=== PATIENT | female | born 1990 | race Caucasian/White ===

== ENCOUNTER → 2020-07-04 17:36 | Outpatient (BNVA) | payer SELFPAY | PROVIDERS: Visit Provider Nurse Practitioner Family | DX: S99.912A Unspecified injury of left ankle, initial encounter (principal); X58.XXXA Exposure to other specified factors, initial encounter; M25.472 Effusion, left ankle; M79.89 Other specified soft tissue disorders | CPT/HCPCS: 73610 ==

== ENCOUNTER → 2020-09-12 07:58 | Outpatient (BNVA) | payer BC, MEDICAID, SELFPAY | PROVIDERS: Visit Provider Obstetrics & Gynecology | DX: O21.9 Vomiting of pregnancy, unspecified (principal) | CPT/HCPCS: 80307; 81000; 82950; 85025; 86592; 86762; 86803; 86850; 86900; 87086; 87340; 87806; 88175 ==

== ENCOUNTER → 2020-10-04 15:34 | Outpatient (BNVA) | payer BC, MEDICAID, SELFPAY | PROVIDERS: Visit Provider Nurse Practitioner Women's Health | DX: O21.9 Vomiting of pregnancy, unspecified (principal) | CPT/HCPCS: 81000 ==

== ENCOUNTER 2020-10-19 17:19 | Emergency (ER) | payer BC, MEDICAID, SELFPAY ==
[2020-10-19 17:43] VITALS: BP 165/92; PULSE 125; RESP 18; TEMP 37.4; O2SAT 98; BMI 43.6
[2020-10-19 18:06] LABS: Basophils % 0.1 %; Eosinophils % 0.1 %; Hematocrit 38.1 % (37.0-47.0); Hemoglobin 12.6 g/dL (11.5-15.3); Lymphocytes % 12.2 %; Mean Corpuscular HGB Conc 33.1 g/dL (30.0-36.0); Mean Corpuscular Hemoglobin 29.8 pg (28.0-34.0); Mean Corpuscular Volume 90.1 fL (81-99); Mean Platelet Volume 10.6 fL (7.4-10.4); Monocytes # 0.4 10^3/uL (0.2-0.9); Monocytes % 4.8 %; Neutrophils % 82.6 %; Nucleated Red Blood Cells % 0 %; Platelet Count 254 10^3/cmm (130-400); Red Blood Count 4.23 10^6/uL (4.1-5.3); Red Cell Distribution Width 12.7 % (12.1-15.1); White Blood Count 8.3 10^3/uL (4.0-10.0)
--- NOTE | 2020-10-19 18:07 | USR_ITS ---
PROCEDURE INFORMATION: Exam: US , Limited Exam date and time: 10/19/2020 6:07 PM Age: 29 years old Clinical indication: complicated by abdominal or pelvic pain; Lower; Second trimester; Gestational age or lmp: 18 w 6 day; ; Patient HX: Spotting; Additional info: Viable TECHNIQUE: Imaging protocol: Real-time ultrasound of the maternal uterus with image documentation. Exam focused on the clinical indication. COMPARISON: US OB <= 14 weeks fetus [facility] 09/06/2020 1:39 PM FINDINGS: Gestation: Single intrauterine . presentation: Breech presentation. heart rate: heart rate 157 bpm. BIOMETRY: Gestational age (AUA): Ultrasonographic age 18 weeks 6 days. MATERNAL: Cervix: Cervix closed and normal in length measuring 5 cm. US/US OB limited [id number] IMPRESSION: 1. Single intrauterine . 2. Ultrasonographic age 18 weeks 6 days. 3. heart rate 157 bpm. 4. Breech presentation. 5. Cervix closed and normal in length measuring 5 cm.
[2020-10-19 18:35] LABS: Alanine Aminotransferase 19 U/L (0-33); Albumin Level 3.8 g/dL (3.5-5.2); Alkaline Phosphatase 50 IU/L (35-105); Aspartate Amino Transferase 15 U/L (0-32); Blood Urea Nitrogen 4 mg/dL (6-20); Calcium 8.6 mg/dL (8.5-10.5); Carbon Dioxide 24 mmol/L (22-29); Chloride 99 mmol/L (98-107); Globulin 3.2 g/dL (1.3-4.6); Glomerular Filtration Rate 188.7 mL/min (90-130); Glucose 90 mg/dL (65-115); Osmolality Calculated 272 mOsm/kg (285-295); Sodium 133 mmol/L (136-145); Total Bilirubin 0.4 mg/dL (0.15-1.2)
[2020-10-19 18:42] LABS: Blood Urine Trace (Negative); Glucose Urine UA Norm (Normal); Ketones Urine 2+ (Negative); Nitrate Urine Negative (Negative); Protein Urine Neg (Negative); Urine Appearance Clear (CLEAR); Urine Color Yellow (Yellow); pH Urine 5 (5-7)
[2020-10-19 18:43] LABS: Add Urine Culture? No; Add Urine Microscopic? YES; Bacteria Urine 2+ /hpf; Bilirubin Urine 1+ (Negative); Leukocyte Esterase Urine Negative (Negative); RBC Urine 0-4 /hpf (0-2); Squamous Epithelial Cell Urine 15-25 /hpf (0-5); Urobilinogen Urine Norm (Negative)
[2020-10-19] MEDS: sodium chloride 0.9% 1,000 ML 999 ML IV (19:14)
[2020-10-19 19:17] VITALS: BP 119/81; PULSE 103; RESP 16; O2SAT 95
--- NOTE | 2020-10-19 20:21 | ED_ITS ---
HPI - General Adult General: Chief complaint: General Medical Stated complaint: 19 WEEKS , SPOTTING, FEVER Time Seen by Provider: 10/19/20 17:55 History of Present Illness: HPI narrative: 29-year-old female who is 19 weeks , presents with vomiting and diarrhea for the past couple of days. Today she began to have a fever, 100.9 at home, and started having some cramping in her pelvis with spotting blood. No passage of tissue or clots. No loss of vaginal fluid. Onset (ago): day(s) Location: pelvis Radiation: non-radiation Severity: moderate Quality: other (cramping) Relieving factors: none Associated symptoms: Reports decreased appetite, fevers/chills, headache(s), nausea and vomiting; Deny chest pain, cough, dyspnea, rash, short of breath or weakness Review of Systems Const: Denies: fever(s) or chills Eyes: Denies: change in vision ENMT: Denies: odynophagia, dental pain, change in hearing or sinus pain Card: Denies: chest pain Resp: Denies: dyspnea GI: Reports: nausea and vomiting : Denies: dysuria or hematuria Musc: Reports: back pain Skin/Breast: Denies: rash or erythema Neuro: Reports: headache(s) Psych: Denies: anxiety PFSH ED PFSH: Medical History (Updated 10/19/20 @ 20:20 by Jonathan Avila DO) History of seizure (~2009) 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 Family History Grandmother Breast cancer Maternal- late age onset Family/Other Ovarian cancer, Onset Age: 35 Maternal Aunt Other CAD (coronary artery disease) Psychiatric illness Denies family history of Colon cancer Diabetes Heart disease Hypercholesteremia Hypertension Uterine cancer Thyroid disease Stroke Physical Exam Const: GENERAL APPEARANCE: well developed ORIENTATION/CONSCIOUSNESS: Yes oriented to person, Yes oriented to place and Yes oriented to time HENMT: COMMON NORMALS: normocephalic and external ears normal HEAD & SCALP: normocephalic FACE & SINUS: normal facial exam EXTERNAL EAR: Yes external ears normal Eye: COMMON NORMALS: Equal, round and reactive pupils present, EOMs intact bilaterally and conjunctivae normal EYELID: eyelids normal CONJUNCTIVA: Yes conjunctivae normal PUPIL: Yes Equal, round and reactive pupils present Neck/C-Spine: GENERAL: No tracheal deviation Chest: COMMONS NORMALS: normal inspection of the chest CHEST: No tenderness Resp: COMMON NORMALS: clear to auscultation bilaterally EFFORT & INSPECTION: No tachypneic, No respiratory distress, No retractions, No uses accessory muscles and No tracheal deviation AUSCULTATION: clear to auscultation bilaterally, no rhonchi, no wheezes and lung sounds not diminished Cardio: COMMON NORMALS: regular rate and regular rhythm RATE: regular rate RHYTHM: regular rhythm HEART SOUNDS: no murmurs PERIPHERAL PULSES: radial pulses present GI: INSPECTION: No abdominal distension AUSCULTATION: No Hyperactive bowel sounds present and No Hypoactive bowel sounds present PALPATION: Yes Tenderness to palpation present (GI) (diffuse lower), No Guarding due to palpation present (GI) and No Rigid due to palpation PERCUSSION: no dullness to percussion and no tympanic to percussion : COMMON NORMALS: Yes no CVA tenderness BLADDER/KIDNEY EXAM: Yes no CVA tenderness Back/Pelvis: COMMON NORMALS: no CVA tenderness Neuro: SENSORIUM/ORIENTATION: Yes oriented to person, Yes oriented to place and Yes oriented to time Psych: COMMON NORMALS: mental status grossly normal Skin: COMMON NORMALS: no rashes or lesions noted GENERAL SKIN EXAM: no rashes or lesions noted Course Vital Signs: Vital signs: Vital Signs Temperature 99.4 F 10/19/20 17:43 Pulse Rate 116 H 10/19/20 20:56 Respiratory Rate 16 10/19/20 20:56 Blood Pressure 123/74 10/19/20 20:56 Pulse Oximetry 97 10/19/20 20:56 MDM - General Adult MDM Narrative: Medical decision making narrative: 29-year-old female at 19 weeks, cramping, spotting. She is got a temperature. White blood cell count is 8.3. Laboratory otherwise benign. She has 2+ ketones in her urine. She is received a fluid bolus here and is feeling better. No cramping here. No further bleeding. On ultrasound, she has an 18-week 6-day intrauterine with normal heart rate, normal-appearing cervix that is closed. No other vaginal discharge. She is complaining of a headache, for which she was given medication. She has no shortness of breath or cough. She will be allowed discharge for close outpatient follow-up. Lab Data: Labs: Lab Results 10/19/20 10/19/20 10/19/20 Range/Units 17:54 17:54 17:54 WBC 8.3 (4.0-10.0) 10^3/ uL RBC 4.23 (4.1-5.3) 10^6/u L Hgb 12.6 (11.5-15.3) g/dL Hct 38.1 (37.0-47.0) % MCV 90.1 (81-99) fL MCH 29.8 (28.0-34.0) pg MCHC 33.1 (30.0-36.0) g/dL RDW 12.7 (12.1-15.1) % Plt Count 254 (130-400) 10^3/c mm MPV 10.6 H (7.4-10.4) fL Neut % (Auto) 82.6 % Lymph % (Auto) 12.2 % Steele % (Auto) 4.8 % Eos % (Auto) 0.1 % Baso % (Auto) 0.1 % Neut # (Auto) 6.80 (1.8-7.7) 10^3/u L Lymph # (Auto) 1.0 (0.8-4.8) 10^3/u L Steele # (Auto) 0.4 (0.2-0.9) 10^3/u L Eos # (Auto) 0.0 (0.0-0.8) 10^3/u L Baso # (Auto) 0.0 (0.0-0.1) 10^3/u L Nucleated RBC % (a uto) 0 % Nucleated RBCs # 0.0 /100WBC Sodium 133 L (136-145) mmol/L Potassium 4.0 (3.5-5.1) mmol/L Chloride 99 (98-107) mmol/L Carbon Dioxide 24 (22-29) mmol/L Anion Gap 14.0 (5-19) BUN 4 L (6-20) mg/dL Creatinine 0.4 L (0.5-0.9) mg/dL GFR Calculation 188.7 H (90-130) mL/min Glucose 90 (65-115) mg/dL Calculated Osmolal ity 272 L (285-295) mOsm/k g Calcium 8.6 (8.5-10.5) mg/dL Total Bilirubin 0.4 (0.15-1.2) mg/dL AST 15 (0-32) U/L ALT 19 (0-33) U/L Alkaline Phosphata se 50 (35-105) IU/L Total Protein 7.0 (6.6-8.7) g/dL Albumin 3.8 (3.5-5.2) g/dL Globulin 3.2 (1.3-4.6) g/dL Ser , [place] 814[address].00 mIU/mL Urine Color (Yellow) Urine Appearance (CLEAR) Urine pH (5-7) Ur Specific Gravit y (1.005-1.030) Urine Protein (Negative) Urine Glucose (UA) (Normal) Urine Ketones (Negative) Urine Blood (Negative) Urine Nitrate (Negative) Urine Bilirubin (Negative) Urine Urobilinogen (Negative) mg/dL Ur Leukocyte Rachel ase (Negative) Urine RBC (0-2) /hpf Urine WBC (0-5) /hpf Ur Squamous Epith Cells (0-5) /hpf Amorphous Sediment Urine Bacteria (NONE) /hpf Blood Type O Positive Rho(D) Type Positive / 4+ / Range/Units 18:21 WBC (4.0-10.0) 10^3/ uL RBC (4.1-5.3) 10^6/u L Hgb (11.5-15.3) g/dL Hct (37.0-47.0) % MCV (81-99) fL MCH (28.0-34.0) pg MCHC (30.0-36.0) g/dL RDW (12.1-15.1) % Plt Count (130-400) 10^3/c mm MPV (7.4-10.4) fL Neut % (Auto) % Lymph % (Auto) % Steele % (Auto) % Eos % (Auto) % Baso % (Auto) % Neut # (Auto) (1.8-7.7) 10^3/u L Lymph # (Auto) (0.8-4.8) 10^3/u L Steele # (Auto) (0.2-0.9) 10^3/u L Eos # (Auto) (0.0-0.8) 10^3/u L Baso # (Auto) (0.0-0.1) 10^3/u L Nucleated RBC % (a uto) % Nucleated RBCs # /100WBC Sodium (136-145) mmol/L Potassium (3.5-5.1) mmol/L Chloride (98-107) mmol/L Carbon Dioxide (22-29) mmol/L Anion Gap (5-19) BUN (6-20) mg/dL Creatinine (0.5-0.9) mg/dL GFR Calculation (90-130) mL/min Glucose (65-115) mg/dL Calculated Osmolal ity (285-295) mOsm/k g Calcium (8.5-10.5) mg/dL Total Bilirubin (0.15-1.2) mg/dL AST (0-32) U/L ALT (0-33) U/L Alkaline Phosphata se (35-105) IU/L Total Protein (6.6-8.7) g/dL Albumin (3.5-5.2) g/dL Globulin (1.3-4.6) g/dL Ser , Won i-Qnt mIU/mL Urine Color Yellow (Yellow) Urine Appearance Clear (CLEAR) Urine pH 5 (5-7) Ur Specific Gravit y 1.020 (1.005-1.030) Urine Protein Neg (Negative) Urine Glucose (UA) Norm (Normal) Urine Ketones 2+ H (Negative) Urine Blood Trace H (Negative) Urine Nitrate Negative (Negative) Urine Bilirubin 1+ H (Negative) Urine Urobilinogen Norm (Negative) mg/dL Ur Leukocyte Rachel ase Negative (Negative) Urine RBC 0-4 H (0-2) /hpf Urine WBC None (0-5) /hpf Ur Squamous Epith Cells 15-25 H (0-5) /hpf Amorphous Sediment Not Reportable Urine Bacteria 2+ H (NONE) /hpf Blood Type Rho(D) Type Discharge Plan Discharge Patient Disposition: Home Clinical Impression: Gastroenteritis Condition: Stable Prescriptions: No Action prenat.vits,dae,yfd-xfxn-rqqnr Tablet 1 tab PO DAILY RF: 0 levocetirizine [Xyzal] 5 mg tablet 5 mg PO DAILY RF: 0 pyridoxine (vitamin B6) 25 mg tablet 25 mg PO DAILY RF: 0 famotidine [Pepcid AC] 10 mg tablet 10 mg PO DAILY RF: 0 amoxicillin PO TID RF: 0 metoclopramide HCl [Reglan] 10 mg tablet 10 mg PO Q6H PRN (Reason: nausea and vomiting) Qty: 90 RF: 1 Unisom (doxylamine) 25 mg tablet 25 mg PO .hs PRNRF: 0 Discharge Orders: Discharge ED (Routine); Ordered 10/19/20 Ordered By: Jonathan Avila Referrals: Alicia Clements MD [Primary Care Provider] - 4-7 days Discharge Diet: Clear Liquid Discharge Activity: Limit activity as instructed Patient Instructions: Gastroenteritis (ED) Activity Restrictions/Additional Instructions: Use your nausea medication as needed. Return for ability to control fever, vomiting liquids or medications, continued diarrhea with signs of dehydration, or vaginal bleeding. Coding Level of Care Code ED Workers Compensation Claims Analyst for [employer] Fwd Exam Comprehensive
[2020-10-19] MEDS: acetaminophen 500 mg Tablet 1000 MG PO (20:45)
[2020-10-19] MEDS: ondansetron 2 mg/ML SDV 2 mL 4 MG IVP (20:47)
[2020-10-19 20:51] VITALS: RESP 16; O2SAT 97
[2020-10-19] MEDS: morphine 4 mg/mL SDV 1 mL IVP (20:51)
[2020-10-19 20:56] VITALS: BP 123/74; PULSE 116; RESP 16; O2SAT 97
[2020-10-19 21:20] VITALS: BP 117/80; PULSE 111; RESP 18; O2SAT 98
== END 2020-10-19 21:22 | disposition home or self-care (01) ==
PROVIDERS: Physician Assistant; Emergency Provider Emergency Medicine; PCP Obstetrics & Gynecology
DX: O99.612 Diseases of the digestive system complicating pregnancy, second trimester (principal); K52.9 Noninfective gastroenteritis and colitis, unspecified; Z3A.19 19 weeks gestation of pregnancy
CPT/HCPCS: 76815; 80053; 81001; 84702; 85025; 86900; 96361; 96374; 96375; 99284; J2270; J2405; J7030

== ENCOUNTER → 2020-11-01 09:29 | Outpatient (BNVA) | payer BC, MEDICAID, SELFPAY | PROVIDERS: PCP Obstetrics & Gynecology; Visit Provider Obstetrics & Gynecology | DX: O21.9 Vomiting of pregnancy, unspecified (principal); Z3A.00 Weeks of gestation of pregnancy not specified | CPT/HCPCS: 81000; 87491; 87591; 87661 ==

== ENCOUNTER → 2020-11-28 11:06 | Outpatient (BNVA) | payer BC, MEDICAID, SELFPAY | PROVIDERS: PCP Obstetrics & Gynecology; Visit Provider Obstetrics & Gynecology | DX: Z34.80 Encounter for supervision of other normal pregnancy, unspecified trimester (principal) | CPT/HCPCS: 81000 ==

== ENCOUNTER → 2020-12-12 14:02 | Outpatient (BNVA) | payer BC, MEDICAID, SELFPAY | PROVIDERS: PCP Obstetrics & Gynecology; Visit Provider Obstetrics & Gynecology | DX: O26.859 Spotting complicating pregnancy, unspecified trimester (principal); Z3A.00 Weeks of gestation of pregnancy not specified | CPT/HCPCS: 81000 ==

== ENCOUNTER 2020-12-13 19:59 | Outpatient (CLI) | payer BC, MEDICAID, SELFPAY ==
[2020-12-13 20:14] VITALS: TEMP 36.6
[2020-12-13 20:15] VITALS: BP 119/66; PULSE 106
[2020-12-13 20:28] VITALS: RESP 17
[2020-12-13 20:31] VITALS: BP 122/69; PULSE 103
[2020-12-13 20:42] VITALS: BMI 45.4
[2020-12-13 22:08] LABS: Add Urine Microscopic? NO; Charge for UA Resulting for Rev
[2020-12-13 22:47] LABS: Bilirubin Urine Neg (Negative); Blood Urine Neg (Negative); Glucose Urine UA Norm (Normal); Ketones Urine 2+ (Negative); Leukocyte Esterase Urine Negative (Negative); Nitrate Urine Negative (Negative); Protein Urine Neg (Negative); Specific Gravity, Urine 1.015 (1.005-1.030); Urine Appearance Clear (CLEAR); Urine Color Yellow (Yellow); Urobilinogen Urine Norm (Negative); pH Urine 5 (5-7)
--- NOTE | 2020-12-14 10:03 | PC.NURSE ---
SCRIPT FOR KEFLEX 500MG BID X7 DAYS WAS CALLED TO JANA AT [facility] AT 0932.
== END 2020-12-13 20:42 | disposition home or self-care (01) ==
LOC: OPOB 20:08 → OBGYN 20:09
PROVIDERS: PCP Obstetrics & Gynecology; Visit Provider Obstetrics & Gynecology
DX: O26.899 Other specified pregnancy related conditions, unspecified trimester (principal); Z3A.00 Weeks of gestation of pregnancy not specified; R10.9 Unspecified abdominal pain
CPT/HCPCS: 81003; 87086; 99211

== ENCOUNTER → 2020-12-24 00:01 | Outpatient (BNVA) | payer BC, MEDICAID, SELFPAY | PROVIDERS: PCP Obstetrics & Gynecology; Visit Provider Nurse Practitioner Women's Health | DX: O21.9 Vomiting of pregnancy, unspecified (principal); Z3A.00 Weeks of gestation of pregnancy not specified | CPT/HCPCS: 81000; 82950; 85025; 87070; 87205; 87491; 87591; 87661 ==

== ENCOUNTER → 2021-01-09 08:57 | Outpatient (BNVA) | payer BC, MEDICAID, SELFPAY | PROVIDERS: PCP Obstetrics & Gynecology; Visit Provider Obstetrics & Gynecology | DX: Z34.80 Encounter for supervision of other normal pregnancy, unspecified trimester (principal) | CPT/HCPCS: 81000 ==

== ENCOUNTER → 2021-01-23 08:46 | Outpatient (BNVA) | payer BC, MEDICAID, SELFPAY | PROVIDERS: PCP Obstetrics & Gynecology; Visit Provider Obstetrics & Gynecology | DX: Z34.80 Encounter for supervision of other normal pregnancy, unspecified trimester (principal) | CPT/HCPCS: 81000; 85025 ==

== ENCOUNTER 2021-02-06 16:39 | Outpatient (CLI) | payer BC, MEDICAID, SELFPAY ==
[2021-02-06] VITALS (14 sets, daily range): BP systolic 108–142; BP diastolic 63–79; PULSE 91–104; RESP 18; TEMP 36.6; BMI 45.4
[2021-02-06] MEDS: acetaminophen 500 mg Tablet 1000 MG PO (17:59)
== END 2021-02-06 20:19 | disposition home or self-care (01) ==
LOC: OPOB 16:49 → OBGYN 16:58
PROVIDERS: PCP Obstetrics & Gynecology; Visit Provider Obstetrics & Gynecology
DX: O26.899 Other specified pregnancy related conditions, unspecified trimester (principal); Z3A.00 Weeks of gestation of pregnancy not specified; R10.9 Unspecified abdominal pain
CPT/HCPCS: 59025; 81000; 99211

== ENCOUNTER → 2021-02-20 09:16 | Outpatient (BNVA) | payer BC, MEDICAID, SELFPAY | PROVIDERS: PCP Obstetrics & Gynecology; Visit Provider Obstetrics & Gynecology | DX: Z34.80 Encounter for supervision of other normal pregnancy, unspecified trimester (principal) | CPT/HCPCS: 81000; 87081 ==

== ENCOUNTER 2021-02-27 09:35 | Outpatient (CLI) | payer BC, MEDICAID, SELFPAY ==
[2021-02-27 09:35] VITALS: BMI 46.7
[2021-02-27 09:51] VITALS: BP 123/81; PULSE 111
--- NOTE | 2021-02-27 10:00 | US_ITS ---
WS: [id number] ULTRASOUND OB LIMITED TECHNIQUE: Limited ultrasound examination of the fetus. CLINICAL INFORMATION: decreased movement COMPARISON: December 24, 2020 FINDINGS: Cervix is not well visualized. Single interuterine gestation. presentation is vertex Placental location is posterior fundal. heart rate 150 BPM. KASEY 15.3 cm greater than the median and less than 95th percentile. Biophysical profile 8 out of 8. breathin movement: 2 tone: 2 Amniotic fluid: 2 US/US OB BPP wo NST [id number] IMPRESSION: 1. Normal biophysical profile 8 out of 8 2. Cervix not well visualized. 3. KASEY 15.3 cm greater than the median and less than 95th percentile.
[2021-02-27 10:06] VITALS: BP 124/76; PULSE 100
[2021-02-27 10:21] VITALS: BP 118/72; PULSE 94
== END 2021-02-27 11:00 | disposition home or self-care (01) ==
LOC: OPOB 09:41 → OBGYN 09:45
PROVIDERS: PCP Obstetrics & Gynecology; Visit Provider Obstetrics & Gynecology
DX: O36.8190 Decreased fetal movements, unspecified trimester, not applicable or unspecified (principal)
CPT/HCPCS: 59025; 76819; 81000; 99211

== ENCOUNTER → 2021-03-06 15:53 | Outpatient (BNVA) | payer BC, MEDICAID, SELFPAY | PROVIDERS: PCP Obstetrics & Gynecology; Visit Provider Obstetrics & Gynecology | DX: Z34.80 Encounter for supervision of other normal pregnancy, unspecified trimester (principal) | CPT/HCPCS: 81000 ==

== ENCOUNTER 2021-03-11 14:51 | Inpatient (IN) | payer BC, MEDICAID, SELFPAY ==
[2021-03-11] VITALS (21 sets, daily range): BP systolic 105–144; BP diastolic 60–91; PULSE 88–110; RESP 16–18; TEMP 36.2–36.5; BMI 48.2
[2021-03-11] MEDS: dextrose 5%-lactated ringers 1,000 ML 125 ML IV (15:55)
[2021-03-11] MEDS: oxytocin 30 UNIT/500 ML BAG IV (16:00)
[2021-03-11 16:23] LABS: Basophils % 0.1 %; Eosinophils % 0.4 %; Hematocrit 31.8 % (37.0-47.0); Hemoglobin 10.3 g/dL (11.5-15.3); Lymphocytes # 2.3 10^3/uL (0.8-4.8); Lymphocytes % 30.6 %; Mean Corpuscular HGB Conc 32.4 g/dL (30.0-36.0); Mean Corpuscular Hemoglobin 28.5 pg (28.0-34.0); Mean Corpuscular Volume 87.8 fl (81-99); Mean Platelet Volume 11.6 fL (7.4-10.4); Monocytes # 0.7 10^3/uL (0.2-0.9); Neutrophils # 4.32 10^3/uL (1.8-7.7); Neutrophils % 58.5 %; Nucleated Red Blood Cells % 0 %; Platelet Count 276 10^3/cmm (130-400); Red Blood Count 3.62 10^6/uL (4.1-5.3); Red Cell Distribution Width 13.2 % (12.1-15.1); White Blood Count 7.4 10^3/uL (4.0-10.0)
[2021-03-11] MEDS: acetaminophen 325 mg Tablet 650 MG PO (19:15)
[2021-03-11] MEDS: lactated ringers 1,000 ML 999 ML IV (21:36)
[2021-03-11] MEDS: fentaNYL 50 mcg/mL INJ 2mL IVP (21:37)
--- NOTE | 2021-03-11 22:33 | PM.OPHPUD ---
Labor & Delivery H&P Update Date of Procedure: March 11, 2021 Date H&P Performed: 03/06/21 H&P update information: I have reviewed H&P completed within last 30 days, I have examined patient prior to procedure and Changes to prior documentation as noted here Changes to previous documentation: The patient is here for elective induction of labor. Cervix 60/-3 Admission Diagnosis: iup@39w2d Related Problem List Diagnoses (1) Supervision of other normal : (2) Somatic dysfunction of pubic region:
--- NOTE | 2021-03-11 22:38 | P.PCNOB_ITS ---
Delivery Note: Date of delivery: March 11, 2021 Pre-delivery diagnoses: iup@ 39 06/02 Post-delivery diagnoses: same Procedure: Op report anesthesia: None Delivering Physician: grabiel Estimated blood loss (mL): 10 Pre-Delivery Course: The patient was admitted for induction at term. Pitocin was started. She was 5 cm dilated and had SROM. Her contractions became stronger and the pitocin was started. She wanted an epidural, but had complete cervical dilation, shortly after SROM. Delivery: The patient had complete cervical dilation and began to push. The head delivered in the JEANA position over an intact perineum under no anesthesia. The nose and mouth were bulb suctioned. The shoulders and body delivered atraumatically. The baby was placed onto the mother's abdomen. The cord was clamped and cut. Cord blood was obtained. The placenta delivered spontaneously. It was inspected and found to be intact. Inspection of the perineum revealed no lacerations. Estimated blood loss 10 mL. Apgars on baby were 8 at 1 minute and 9 at 5 minutes. Weight of baby is 9 pounds 2 ounces. Mother and baby were stable post delivery. History History History 2 Term 1 Miscarriages/Ectopic 0 0 Living Children 1 A&P Assessment and plan (1) Supervision of other normal : Status: Acute (2) Somatic dysfunction of pubic region: Status: Acute Coding Level of Care Code Acute Nanotechnology Engineering Technician for Chg Fwd Diagnoses Supervision of other normal Z34.80 Somatic dysfunction of pubic region M99.05
[2021-03-12] VITALS (15 sets, daily range): BP systolic 112–134; BP diastolic 6–88; PULSE 88–122; TEMP 36.1–37.3; O2SAT 98
--- NOTE | 2021-03-12 08:37 | PM.PN ---
Vitals/I&O/Wt Last Vital Signs Temp 99.1 F 03/12/21 06:11 Pulse 93 03/12/21 07:58 Resp 18 03/11/21 22:52 BP 134/74 03/12/21 07:58 03/11/21 03/12/21 03/12/21 22:59 06:59 14:59 Intake Total 1593.117 / 0347.983 1724.3 / 2710.417 Output Total 350 / 350 Balance 1593.117 / 1593.117 767.3 / 2360.417 Weight last 48 hrs Weight 290 lb Physical Exam Narrative: EXAM NARRATIVE: The patient is doing well this am. The baby is in the nursery for O2 issues. Const: COMMON NORMALS: no acute distress, patient oriented x3, no limitations, healthy appearing, alert and well nourished GENERAL APPEARANCE: cooperative, comfortable, well kempt and well developed ORIENTATION/CONSCIOUSNESS: Yes awake, Yes oriented to person, Yes oriented to place and Yes oriented to time Resp: COMMON NORMALS: normal respiratory effort EFFORT & INSPECTION: Yes able to speak in complete sentences GI: COMMON NORMALS: Soft to palpation and non-tender PALPATION: Yes Soft to palpation Extremity: COMMON NORMALS: no calf tenderness Neuro: COMMON NORMALS: patient oriented x3 SENSORIUM/ORIENTATION: Yes alert, Yes oriented to person, Yes oriented to place and Yes oriented to time Psych: COMMON NORMALS: mental status grossly normal, Normal thought process present, cooperative, normal affect and speech normal APPEARANCE: Yes grossly normal and Yes well kempt ATTITUDE: Yes calm and Yes engaged ACTIVITY/MOTOR BEHAVIOR: Yes appropriate eye contact SPEECH: Yes normal speech THOUGHT PROCESS: Normal thought process present Data : 03/11/21 15:45 Attestations Medical Necessity Statement*: The patient had a vaginal delivery and is staying 2 nights Coding Level of Care Code Acute Edge Polisher for Tiffanie Kirkland
[2021-03-12] MEDS: ibuprofen 800 mg tablet PO ×3 (09:51→20:49)
[2021-03-12] MEDS: prenatal vitamin Capsule 1 CAP PO (09:51)
[2021-03-12] MEDS: docusate sodium 100 mg Capsule PO ×2 (09:51→18:27)
[2021-03-12 10:48] LABS: Hematocrit 30.2 % (37.0-47.0); Hemoglobin 9.7 g/dL (11.5-15.3); Mean Corpuscular HGB Conc 32.1 g/dL (30.0-36.0); Mean Corpuscular Hemoglobin 27.6 pg (28.0-34.0); Mean Platelet Volume 12.2 fL (7.4-10.4); Platelet Count 210 10^3/cmm (130-400); Red Blood Count 3.51 10^6/uL (4.1-5.3); Red Cell Distribution Width 13.3 % (12.1-15.1); White Blood Count 9.4 10^3/uL (4.0-10.0)
[2021-03-12 16:58] LABS: Coronavirus Test Green County Not Detected
[2021-03-13 04:00] VITALS: BP 130/77; PULSE 85
--- NOTE | 2021-03-13 08:44 | PC.NURSE ---
0715 note This baby has been nursing well. Mom using a nipple shield but has doubts about baby getting enough. She has used formula through the night. She said after about 10 to 15 min of nursing baby was still acting hungry so she gave formula. Also baby has IV in her left arm, making positioning difficult for mom. The IV is going to be discontinued and that will help mom. Encouraged her to offer both breasts and to give both breasts more than once. She has colostrum and knows how to express as well.
[2021-03-13] MEDS: docusate sodium 100 mg Capsule PO (09:44)
[2021-03-13] MEDS: ibuprofen 800 mg tablet PO ×2 (09:44→16:13)
[2021-03-13] MEDS: prenatal vitamin Capsule 1 CAP PO (09:44)
[2021-03-13 10:39] VITALS: BP 125/77; PULSE 82
--- NOTE | 2021-03-13 14:14 | PM.DCS ---
Discharge Providers Date of Admission: 03/11/21 14:51 Date of Discharge: March 13, 2021 Attending Provider at Admission: Alicia Clements MD Attending Provider at Discharge: Alicia Clements MD Primary Care Provider: Alicia Clements MD Diagnoses at Discharge Discharge Diagnosis (1) Supervision of other normal : Status: Acute (2) Somatic dysfunction of pubic region: Status: Acute Permanent problem details: present during her last Reason for Visit Reason for Visit: Induction of labor Hospital Course Hospital Course The patient was admitted for induction at term. She had spontaneous delivery of a term female . She did well and was ready for discharge on day #2 Physical Exam Const: COMMON NORMALS: no acute distress, patient oriented x3, no limitations, healthy appearing and alert GENERAL APPEARANCE: cooperative, comfortable, well kempt and well developed ORIENTATION/CONSCIOUSNESS: Yes awake, Yes oriented to person, Yes oriented to place and Yes oriented to time Resp: COMMON NORMALS: normal respiratory effort EFFORT & INSPECTION: Yes able to speak in complete sentences GI: COMMON NORMALS: Soft to palpation and non-tender PALPATION: Yes Soft to palpation Extremity: COMMON NORMALS: no calf tenderness Neuro: COMMON NORMALS: patient oriented x3 SENSORIUM/ORIENTATION: Yes alert, Yes oriented to person, Yes oriented to place and Yes oriented to time Psych: APPEARANCE: Yes well kempt Discharge Data Data Completed and Pending: Labs from last 24 hours 03/11/21 15:25 Nasal/Oral COVID-1 9 PCR Not detected Vitals: Last Vital Signs Temp 97.0 F L 03/12/21 15:25 Pulse 82 03/13/21 10:39 Resp 18 03/11/21 22:52 BP 125/77 03/13/21 10:39 Pulse Ox 98 03/12/21 12:37 Discharge Plan Discharge Patient Disposition: Home Condition: Stable Prescriptions: Continued prenat.vits,dae,sdv-[id number] Tablet 1 tab PO DAILY RF: 0 ferrous sulfate [FeroSul] 325 mg (65 mg iron) tablet 325 mg PO DAILY RF: 0 metoclopramide HCl [Reglan] 10 mg tablet 10 mg PO Q6H PRN (Reason: nausea and vomiting) Qty: 30 RF: 0 Discharge Orders: Discharge Order (Routine); Ordered 03/13/21 Ordered By: Alicia Clements Patient Instructions: Depression (DC), Expression, Collection and Storage of Breast Milk (DC), Bleeding (DC), Preeclampsia and Eclampsia After Delivery (GEN), OB Discharge Report, OB Food/Drug Interaction Guide, Opioid Safety, OB Home Care, OB Vaginal Deliveries - [facility] Discharge Attestations Time Spent in Discharge Care*: less than 30 min Quality Metrics Clinical Quality Measures During this hospital stay, did patient experience: None Coding Level of Care Code Acute Chg FW DC note Diagnoses Supervision of other normal Z34.80 Somatic dysfunction of pubic region M99.05
[2021-03-13 19:24] VITALS: BP 128/67; PULSE 83; TEMP 36.2
[2021-03-13 19:44] VITALS: BP 128/67; PULSE 83; RESP 18; TEMP 36.2
== END 2021-03-13 19:44 | disposition home or self-care (01) | DRG 807 ==
LOC: OPOB 14:56 → OBGYN 14:57 → OPOB 15:00 → OBGYN 15:20
PROVIDERS: Admitting Provider Obstetrics & Gynecology; PCP Obstetrics & Gynecology; Visit Provider Obstetrics & Gynecology
DX: O75.89 Other specified complications of labor and delivery (principal); Z37.0 Single live birth; M99.05 Segmental and somatic dysfunction of pelvic region; Z3A.39 39 weeks gestation of pregnancy
CPT/HCPCS: 36415; 59025; 59409; 85025; 85027; 87635; 98960; J3010

== ENCOUNTER → 2021-08-21 14:27 | Outpatient (BNVA) | payer BC, MEDICAID, SELFPAY | PROVIDERS: PCP Obstetrics & Gynecology; Visit Provider Obstetrics & Gynecology | DX: N93.9 Abnormal uterine and vaginal bleeding, unspecified (principal) | CPT/HCPCS: 83525; 84443 ==

== ENCOUNTER → 2022-08-27 15:00 | Outpatient (BNVA) | payer BC, MEDICAID, SELFPAY | PROVIDERS: PCP Obstetrics & Gynecology; Visit Provider Obstetrics & Gynecology | DX: Z01.419 Encounter for gynecological examination (general) (routine) without abnormal findings (principal); N93.9 Abnormal uterine and vaginal bleeding, unspecified | CPT/HCPCS: 87624 ==

== ENCOUNTER → 2022-09-23 12:18 | Outpatient (BNVA) | payer OTHER, BC, MEDICAID, SELFPAY | PROVIDERS: PCP Obstetrics & Gynecology; Visit Provider Obstetrics & Gynecology | DX: N92.6 Irregular menstruation, unspecified (principal) | CPT/HCPCS: 76830 ==

== ENCOUNTER 2023-05-26 17:44 | Emergency (ER) | payer OTHER, BC, MEDICAID, SELFPAY ==
[2023-05-26 17:50] VITALS: BP 132/83; PULSE 91; RESP 16; TEMP 36.4; O2SAT 99
--- NOTE | 2023-05-26 18:19 | USR_ITS ---
PROCEDURE INFORMATION: Exam: US , Limited Exam date and time: 05/26/2023 7:38 PM Age: 32 years old Clinical indication: Lmp or gestational age (in weeks): Spotting x 4-5 days; Antepartum complications; Bleeding; ; Additional info: Abdnormal bleeding, 17 weeks TECHNIQUE: Imaging protocol: Real-time ultrasound of the maternal uterus with image documentation. Exam focused on the clinical indication. COMPARISON: US OB BPP wo NST [id number] 02/27/2021 10:38 AM FINDINGS: Gestation: There is an intrauterine in transverse presentation with heart rate measures 138 bpm. Amniotic fluid index measures 19.1 cm. Posterior grade 0 placenta. There is a 3.4 x 1 cm hypoechoic focus concerning for retroplacental hemorrhage. Cervix measures 7.3 cm and is closed. Measurements (cm) BPD: 4.1 cm HC: 15.6 cm AC: 12.9 cm FL: 2.8 cm EFW: 244 g CI: 86.8 FL/AC: 21.7 FL/HC: 17.9 HC/AC: 1.2 anatomy: Cerebellum: Not well visualized Choroid plexus: Unremarkable Cisterna magna: Not well visualized Falx: Not well visualized Cavum septum pellucidum: Unremarkable Upper lip: Not well visualized Facial profile: Not well visualized Stomach: Unremarkable Kidneys: Unremarkable Bladder: Unremarkable Umbilical cord insertion: Unremarkable Three-vessel cord: Visualized US/US OB >= 14 weeks fetus [id number] IMPRESSION: 1. Intrauterine with estimated gestational age of 18 weeks 4 days. There is a focal hypoechoic region measuring approximately 3 cm subjacent to the placenta concerning for retroplacental hemorrhage. OB evaluation is recommended. The findings were verbally communicated by telephone with GASTON ANDERSON at 8:40 PM INCOME TAX MANAGER on 05/26/2023. The findings were acknowledged and understood.
--- NOTE | 2023-05-26 18:20 | XRR_ITS ---
PROCEDURE INFORMATION: Exam: XR Chest Exam date and time: 05/26/2023 6:54 PM Age: 32 years old Clinical indication: Cough and dyspnea; Additional info: Cough, dyspnea TECHNIQUE: Imaging protocol: Radiologic exam of the chest. Views: 1 view. COMPARISON: No relevant prior studies available. FINDINGS: Lungs: No focal consolidation. Pleural spaces: No evidence of pneumothorax. No evidence of pleural effusion. Heart/Mediastinum: Cardiomediastinal silhouette is within normal limits. Bones/joints: No evidence of acute osseous abnormality. XR/XR chest 1V portable [id number] IMPRESSION: 1. No acute cardiopulmonary abnormality.
--- NOTE | 2023-05-26 18:23 | ED_ITS ---
HPI - Abdominal Pain 2 General: Chief Complaint: Abdominal Pain Stated Complaint: sob, abd pain Time Seen by Provider: 05/26/23 18:18 History of Present Illness: 32-year-old female comes in today for co ncerns of lower abdominal discomfort and spotting mainly when she wipes after urinating. Patient appears nontoxic. Patient has 1 other baby at home was 2 years old. 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 Patient appears nontoxic. Patient is alert and oriented. Review of Systems 2 General: Reports: 10 or more systems reviewed and unremarkable except in HPI and below GI: Reports: abdominal pain PFSH ED 2 PFSH: Medical History History of seizure (~2009) 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 Family History Grandmother Breast cancer Maternal- late age onset Family/Other Ovarian cancer, Onset Age: 35 Maternal Aunt Other CAD (coronary artery disease) Psychiatric illness Denies family history of Colon cancer Diabetes Heart disease Hypercholesteremia Hypertension Uterine cancer Thyroid disease Stroke Physical Exam 2 Const: COMMON NORMALS: alert Neck/C-Spine: COMMON NORMALS: full ROM Resp: COMMON NORMALS: normal respiratory effort Cardio: COMMON NORMALS: regular rate and regular rhythm RATE: regular rate RHYTHM: regular rhythm GI: COMMON NORMALS: non-tender : COMMON NORMALS: Yes no CVA tenderness BLADDER/KIDNEY EXAM: Yes no CVA tenderness Back/Pelvis: COMMON NORMALS: no CVA tenderness Extremity: COMMON NORMALS: no pedal edema Neuro: SENSORIUM/ORIENTATION: Yes alert Course 2 Vital Signs: Vital signs: Vital Signs Temperature 97.5 F L 05/26/23 17:50 Pulse Rate 95 05/26/23 20:24 Respiratory Rate 16 05/26/23 17:50 Blood Pressure 132/83 05/26/23 17:50 Pulse Oximetry 98 05/26/23 20:24 Oxygen Delivery Me thod Room Air 05/26/23 17:50 MDM - Abdominal Pain Medical Decision Making 32-year-old female comes in today for complaints of lower abdominal pain and spotting especially when she wipes after urinating. On exam respirations are even lungs are clear to auscultation. Abdomen soft nontender. Skin is warm and dry. Differential diagnosis includes but not limited to abruptio placentae, placenta previa, urinary tract infection, threatened . CBC, CMP, urinalysis were all unremarkable. Patient's beta hCG was 42,000. Influenza and COVID test were negative. Ultrasound of the fetus noted a 3 cm subplacental hemorrhage. Reviewed this with Dr. Waller who is on-call for Dr. Quintanilla who recommended pelvic rest and no lifting and follow-up with Dr. Quinatnilla tomorrow. Monitor for worsening bleeding and return to ER as needed. Reviewed this with patient who reported understanding agreed to plan. Lab Data 05/26/23 18:29 05/26/23 18:29 Labs/Radiology: Radiology Impressions Ultrasound 05/26/23 18:19 IMPRESSION: 1. Intrauterine with estimated gestational age of 18 weeks 4 days. There is a focal hypoechoic region measuring approximately 3 cm subjacent to the placenta concerning for retroplacental hemorrhage. OB evaluation is recommended. The findings were verbally communicated by telephone with ANDREA ANDERSON at 8:40 PM HANDS AND DIAL INSPECTOR on 05/26/2023. The findings were acknowledged and understood. Chest X-Ray 05/26/23 18:20 IMPRESSION: 1. No acute cardiopulmonary abnormality. Laboratory Results WBC 11.03 10^3/uL (3.29-11.43) 05/26/23 18: RBC 3.96 10^6/uL (3.85-5.65) 05/26/23 18: Hgb 11.90 g/dL (11.27-16.99) 05/26/23 18: Hct 35.9 % (36-47) L 05/26/23 18: MCV 90.7 fl (85-98) 05/26/23 18: MCH 30.1 pg (27-33) 05/26/23 18: MCHC 33.1 g/dL (30-55) 05/26/23 18: RDW 12.4 % (12.1-15.1) 05/26/23 18: Plt Count 258 10^3/cmm (157-399) 05/26/23 18: MPV 10.7 fL (7.4-10.4) H 05/26/23 18: Neut % (Auto) 64.3 % 05/26/23 18: Lymph % (Auto) 28.3 % 05/26/23 18: [place] % (Auto) 6.2 % 05/26/23 18: Eos % (Auto) 0.5 % 05/26/23 18: Baso % (Auto) 0.2 % 05/26/23 18: Neut # (Auto) 7.10 10^3/uL (1.8-7.7) 05/26/23 18: Lymph # (Auto) 3.1 10^3/uL (0.8-4.8) 05/26/23 18: [place] # (Auto) 0.7 10^3/uL (0.2-0.9) 05/26/23 18: Eos # (Auto) 0.1 10^3/uL (0.0-0.8) 05/26/23 18: Baso # (Auto) 0.0 10^3/uL (0.0-0.1) 05/26/23 18: Nucleated RBC % (auto) 0 % 05/26/23 18: Nucleated RBCs # 0.0 /100WBC 05/26/23 18: Sodium 135 mmol/L (136-145) L 05/26/23 18: Potassium 4.2 mmol/L (3.5-5.1) 05/26/23 18: Chloride 102 mmol/L (98-107) 05/26/23 18: Carbon Dioxide 23 mmol/L (22-29) 05/26/23 18: Anion Gap 14.2 (5-19) 05/26/23 18:29 BUN 4 mg/dL (6-20) L 05/26/23 18: Creatinine 0.4 mg/dL (0.5-0.9) L 05/26/23 18: GFR Calculation 185.0 mL/min (90-130) H 05/26/23 18:29 Glucose 93 mg/dL (65-115) 05/26/23 18:29 Calculated Osmolality 277 mOsm/kg (285-295) L 05/26/23 18:29 Calcium 8.7 mg/dL (8.5-10.5) 05/26/23 18:29 Total Bilirubin 0.2 mg/dL (0.15-1.2) 05/26/23 18:29 AST 9 U/L (0-32) 05/26/23 18: ALT 13 U/L (0-33) 05/26/23 18:29 Alkaline Phosphatase 49 U/L (35-105) 05/26/23 18:29 Total Protein 6.8 g/dL (6.6-8.7) 05/26/23 18: Albumin 3.4 g/dL (3.5-5.2) L 05/26/23 18: Globulin 3.4 g/dL (1.3-4.6) 05/26/23 18: Lipase 17 U/L (13-60) 05/26/23 18:29 HCG, Qual Positive (Negative) H 05/26/23 18:29 Ser , Semi-Qnt 34697.00 mIU/mL 05/26/23 18:29 Urine Color Light yellow (Yellow) 05/26/23 20:11 Urine Appearance Clear (CLEAR) 05/26/23 20:11 Urine pH 5 (5-7) 05/26/23 20:11 Ur Specific [place] 1.015 (1.005-1.030) 05/26/23 20:11 Urine Protein Neg (Negative) 05/26/23 20:11 Urine Glucose (UA) Norm (Normal) 05/26/23 20:11 Urine Ketones Negative (Negative) 05/26/23 20:11 Urine Blood Neg (Negative) 05/26/23 20:11 Urine Nitrate Negative (Negative) 05/26/23 20:11 Urine Bilirubin Neg (Negative) 05/26/23 20:11 Urine Urobilinogen Neg mg/dL (Negative) 05/26/23 20:11 Ur Leukocyte Esterase Negative (Negative) 05/26/23 20:11 Influenza Type A Ag negative (Negative) 05/26/23 18:43 Influenza Type B Ag negative (Negative) 05/26/23 18:43 SARS-CoV-2 Ag (Rapid) negative (Negative) 05/26/23 18:43 All radiology interpretation(s) finalized by discharge Discharge Plan Discharge Patient Disposition: Home Clinical Impression: Placental hemorrhage Condition: Stable Prescriptions: No Action levocetirizine [Xyzal] 5 mg tablet 5 mg PO DAILY Discharge Orders: Discharge ED (Routine); Ordered 05/26/23 Ordered By: Andrea Flores Referrals: Alicia Clements MD [Primary Care Provider] - Discharge Diet: Usual diet Discharge Activity: Increase activity as tolerated Activity Restrictions/Additional Instructions: Home and rest. No lifting, full pelvic rest. Follow-up with Dr. Quintanilla in AM. Coding Level of Care Code ED Floral Assistant for Tiffanie Kirkland
[2023-05-26 18:40] LABS: Basophils % 0.2 %; Eosinophils # 0.1 10^3/uL (0.0-0.8); Eosinophils % 0.5 %; Hematocrit 35.9 % (36-47); Lymphocytes # 3.1 10^3/uL (0.8-4.8); Lymphocytes % 28.3 %; Mean Corpuscular HGB Conc 33.1 g/dL (30-55); Mean Corpuscular Hemoglobin 30.1 pg (27-33); Mean Corpuscular Volume 90.7 fl (85-98); Mean Platelet Volume 10.7 fL (7.4-10.4); Monocytes # 0.7 10^3/uL (0.2-0.9); Monocytes % 6.2 %; Neutrophils % 64.3 %; Nucleated Red Blood Cells % 0 %; Platelet Count 258 10^3/cmm (157-399); Red Blood Count 3.96 10^6/uL (3.85-5.65); Red Cell Distribution Width 12.4 % (12.1-15.1); White Blood Count 11.03 10^3/uL (3.29-11.43)
--- NOTE | 2023-05-26 18:45 | PC.NURSE ---
urinalysis delayed d/t ED provider wanting pt to wait until US is complete.
[2023-05-26 18:57] LABS: Alanine Aminotransferase 13 U/L (0-33); Albumin Level 3.4 g/dL (3.5-5.2); Alkaline Phosphatase 49 U/L (35-105); Anion Gap 14.2 (5-19); Aspartate Amino Transferase 9 U/L (0-32); Blood Urea Nitrogen 4 mg/dL (6-20); Calcium 8.7 mg/dL (8.5-10.5); Carbon Dioxide 23 mmol/L (22-29); Chloride 102 mmol/L (98-107); Globulin 3.4 g/dL (1.3-4.6); Glucose 93 mg/dL (65-115); Lipase 17 U/L (13-60); Osmolality Calculated 277 mOsm/kg (285-295); Potassium 4.2 mmol/L (3.5-5.1); Sodium 135 mmol/L (136-145); Total Bilirubin 0.2 mg/dL (0.15-1.2); Total Protein 6.8 g/dL (6.6-8.7)
[2023-05-26 19:06] LABS: HCG, Serum Qual Positive (Negative)
[2023-05-26 19:34] LABS: SARS Covid-2 Antigen negative (Negative)
[2023-05-26 19:35] LABS: Influenza A by IFA negative (Negative); Influenza B by IFA negative (Negative)
[2023-05-26 20:24] VITALS: PULSE 95; O2SAT 98
[2023-05-26 20:25] LABS: Add Urine Microscopic? NO; Charge for UA Resulting for Rev
[2023-05-26 20:39] LABS: Bilirubin Urine Neg (Negative); Blood Urine Neg (Negative); Glucose Urine UA Norm (Normal); Ketones Urine Negative (Negative); Leukocyte Esterase Urine Negative (Negative); Nitrate Urine Negative (Negative); Protein Urine Neg (Negative); Specific Gravity, Urine 1.015 (1.005-1.030); Urine Appearance Clear (CLEAR); Urine Color Light yellow (Yellow); Urobilinogen Urine Neg (Negative); pH Urine 5 (5-7)
[2023-05-26 21:12] VITALS: BP 128/77; PULSE 94; O2SAT 98
== END 2023-05-26 21:13 | disposition home or self-care (01) ==
PROVIDERS: Emergency Medicine; Emergency Provider Nurse Practitioner Family; PCP Obstetrics & Gynecology
DX: O46.8X2 Other antepartum hemorrhage, second trimester (principal); Z3A.18 18 weeks gestation of pregnancy; Z11.52 Encounter for screening for COVID-19
CPT/HCPCS: 36415; 71045; 76805; 80053; 81003; 83690; 84702; 84703; 85025; 87426; 87804; 99284

== ENCOUNTER 2023-07-20 17:20 | Outpatient (CLI) | payer OTHER, SELFPAY ==
[2023-07-20] VITALS (12 sets, daily range): BP systolic 118–129; BP diastolic 72–79; PULSE 97–113; RESP 17; TEMP 36.1–36.2; BMI 45.4
[2023-07-20] MEDS: acetaminophen 325 mg Tablet 1000 MG PO (18:46)
[2023-07-20 19:51] LABS: Bilirubin Urine Neg (Negative); Blood Urine Neg (Negative); Glucose Urine UA Norm (Normal); Ketones Urine 1+ (Negative); Leukocyte Esterase Urine Negative (Negative); Nitrate Urine Negative (Negative); Protein Urine Neg (Negative); Urine Appearance Hazy (CLEAR); Urine Color Yellow (Yellow); Urobilinogen Urine Norm (Negative); pH Urine 5 (5-7)
[2023-07-20 20:06] LABS: Add Urine Culture? No; Bacteria Urine 1+ /hpf; Mucus Urine TRACE /hpf; RBC Urine RARE /hpf (0-2); Squamous Epithelial Cell Urine 0-4 /hpf (0-5); Transitional Epi Cells Urine 0-4 /hpf; WBC Urine 0-4 /hpf (0-5)
== END 2023-07-20 20:39 | disposition home or self-care (01) ==
LOC: OPOB 17:20 → OBGYN 17:26
PROVIDERS: PCP Obstetrics & Gynecology; Visit Provider Family Medicine
DX: O26.859 Spotting complicating pregnancy, unspecified trimester (principal); Z3A.00 Weeks of gestation of pregnancy not specified; R10.9 Unspecified abdominal pain
CPT/HCPCS: 81001; 99211

== ENCOUNTER 2023-09-18 20:35 | Outpatient (CLI) | payer OTHER, SELFPAY ==
[2023-09-18 20:26] VITALS: BMI 46.1
[2023-09-18 20:47] VITALS: BP 117/81; PULSE 108; TEMP 36.3
[2023-09-18 21:38] VITALS: RESP 16
[2023-09-18 23:04] VITALS: BP 127/81; PULSE 92
[2023-09-18 23:10] VITALS: BP 127/81; PULSE 92
== END 2023-09-18 23:15 | disposition home or self-care (01) ==
LOC: OPOB 20:36 → OBGYN 20:36
PROVIDERS: PCP Obstetrics & Gynecology; Visit Provider Family Medicine
DX: O26.899 Other specified pregnancy related conditions, unspecified trimester (principal); Z3A.00 Weeks of gestation of pregnancy not specified; R10.9 Unspecified abdominal pain
CPT/HCPCS: 59025; 99211

== ENCOUNTER 2023-10-09 22:25 | Outpatient (CLI) | payer OTHER, SELFPAY ==
[2023-10-09 22:35] VITALS: BP 118/75; PULSE 104
[2023-10-09 22:36] VITALS: BMI 46.4
[2023-10-09 22:50] VITALS: BP 115/73; PULSE 98
[2023-10-09 23:07] VITALS: BP 114/70; PULSE 92
== END 2023-10-09 23:12 | disposition home or self-care (01) ==
LOC: OPOB 22:27 → OBGYN 22:30
PROVIDERS: Absent Provider Family Medicine; PCP Obstetrics & Gynecology; Visit Provider Family Medicine
DX: O36.8190 Decreased fetal movements, unspecified trimester, not applicable or unspecified (principal); Z3A.00 Weeks of gestation of pregnancy not specified
CPT/HCPCS: 59025; 99211

== ENCOUNTER 2023-10-21 19:10 | Inpatient (IN) | payer OTHER, SELFPAY ==
[2023-10-21] VITALS (11 sets, daily range): BP systolic 120–144; BP diastolic 64–92; PULSE 83–98; RESP 18–20; TEMP 36.4–37; BMI 47.0
[2023-10-21 20:18] LABS: Basophils % 0.1 %; Eosinophils % 0.2 %; Hematocrit 32.1 % (36-47); Lymphocytes # 2.5 10^3/uL (0.8-4.8); Lymphocytes % 28.1 %; Mean Corpuscular HGB Conc 32.4 g/dL (30-55); Mean Corpuscular Hemoglobin 26.7 pg (27-33); Mean Corpuscular Volume 82.3 fl (85-98); Mean Platelet Volume 11.9 fL (7.4-10.4); Monocytes # 0.4 10^3/uL (0.2-0.9); Neutrophils # 5.84 10^3/uL (1.8-7.7); Neutrophils % 66.4 %; Nucleated Red Blood Cells % 0 %; Platelet Count 278 10^3/cmm (157-399); Red Cell Distribution Width 14.4 % (12.1-15.1); White Blood Count 8.81 10^3/uL (3.29-11.43)
[2023-10-21] MEDS: dextrose 5%-lactated ringers 1,000 ML 125 ML IV (20:33)
[2023-10-21] MEDS: oxytocin 30 UNIT/500 ML BAG IV (20:34)
[2023-10-21] MEDS: oxytocin 30 UNIT/500 ML BAG 600 UNIT IV (23:01)
--- NOTE | 2023-10-21 23:35 | PM.OPHPUD ---
Labor & Delivery H&P Update Date of Procedure: October 21, 2023 Date H&P Performed: 10/14/23 Changes to previous documentation: Cervix dilated to 5 cm Admission Diagnosis: 32-year-old 3 para 2-0-0-2 at 39 weeks estimated gestational age Planned procedure: Spontaneous vaginal delivery Other information: The patient presented to the [facility] for elective induction. We discussed the benefits versus risks of of induction. Due to her history of LGA babies as well as her history of very rapid labors she was desired to have an induction at this time. Her has been relatively unremarkable. Her labs are as follows. Her blood type is O+. Her infant screen is negative. She is rubella immune. She is GBS negative. The remainder of her infectious disease profile is within normal limits. Her glucose screen was 138. Related Problem List Diagnoses (1) 39 weeks gestation of : A&P Assessment and plan (1) 39 weeks gestation of : Pitocin will be initiated. We will augment her labor as needed. Given her dilation and her history, anticipate she will progress rapidly. Status: Acute
--- NOTE | 2023-10-21 23:41 | PM.DELIVERY ---
Delivery Note: Date of delivery: October 21, 2023 Pre-delivery diagnoses: 32-year-old 3 para 2-0-0-2 at 39 weeks estimated gestational age Post-delivery diagnoses: Status post spontaneous vaginal delivery Procedure: Spontaneous vaginal delivery Delivering Physician: Corby Quintanilla Estimated blood loss (mL): 200 Pre-Delivery Course: The patient presented to the hospital for induction at 7:00 the night of delivery. Induction was initiated a little after 8:00. An amniotomy was performed about 15 minutes prior to delivery. Delivery: DELIVERY: The patient progressed to complete without difficulty. She delivered a male with a weight of 10 pounds 0 ounces with Apgars of 9, 9. The baby was delivered from the JEANA position. The baby's mouth and nose were suctioned at the site of the perineum. The baby was then completely delivered and placed on the mother's abdomen. The cord was then clamped and cut. There was no nuchal cord. There was no meconium. The placenta and 3 vessel cord were delivered intact shortly thereafter. The perineum and vaginal vault were carefully examined. No lacerations were noted. Both the mother and the baby were in stable condition. History History History 3 Term 2 0 Miscarriages/Ectopic 0 Living Children 2 A&P Assessment and plan (1) 39 weeks gestation of : I anticipate routine care. (2) Spontaneous vaginal delivery: Coding Level of Care Code Acute Code for Chg Fwd Diagnoses 39 weeks gestation of Z3A.39 Spontaneous vaginal delivery O80
[2023-10-22] VITALS (13 sets, daily range): BP systolic 113–149; BP diastolic 62–81; PULSE 81–96; RESP 16–18; TEMP 36.6–36.8; O2SAT 96–99
[2023-10-22] MEDS: ibuprofen 800 mg tablet PO ×4 (00:05→21:03)
[2023-10-22] MEDS: lanolin oint 7 gm 1 APPLIC TOPICAL (00:05)
[2023-10-22] MEDS: benzocaine-menthol 78 gm Canister 1 SPRAY TOPICAL (00:05)
[2023-10-22] MEDS: acetaminophen 325 mg Tablet 650 MG PO (05:04)
[2023-10-22] MEDS: PRENATAL VIT NO.130/IRON/FOLIC 1 EACH TABLET PO (09:27)
[2023-10-22] MEDS: docusate sodium 100 mg Capsule PO ×2 (09:27→18:24)
[2023-10-22 11:24] LABS: Mean Corpuscular HGB Conc 32.1 g/dL (30-55); Mean Corpuscular Hemoglobin 26.2 pg (27-33); Mean Corpuscular Volume 81.6 fl (85-98); Mean Platelet Volume 11.9 fL (7.4-10.4); Platelet Count 246 10^3/cmm (157-399); Red Blood Count 3.43 10^6/uL (3.85-5.65); Red Cell Distribution Width 14.3 % (12.1-15.1); White Blood Count 9.89 10^3/uL (3.29-11.43)
--- NOTE | 2023-10-22 16:41 | P.PN_ITS ---
MOLD BUILDER Subjective 2 Subjective: Interval history: She is doing well. She is breast-feeding well. Her bleeding is within normal limits. Her pain is controlled. Labor: Station: +3 Amniotic Membrane Status: Ruptured Monitor Mode: Palpation Contraction Pattern: Regular Status: Category II Vitals/I&O/Wt Last Vital Signs Temp 98.0 F 10/22/23 09:00 Pulse 89 10/22/23 09:00 Resp 17 10/22/23 09:00 BP 123/79 10/22/23 09:00 Pulse Ox 97 10/22/23 09:00 O2 Del Method Room Air 10/22/23 09:00 10/22/23 10/22/23 10/22/23 06:59 14:59 22:59 Intake Total 854.984 / 862.167 Balance 854.984 / 862.167 Weight last 48 hrs Weight 283 lb Physical Exam 2 Narrative: The patient is alert. She appears comfortable. Her heart has a regular rate and rhythm with no murmurs appreciated. Lungs are clear to auscultation bilaterally. Her fundus is firm and below the umbilicus. Data 10/22/23 11:15 A&P Assessment and plan (1) Spontaneous vaginal delivery: I anticipate routine care. Probable discharge tomorrow. (2) 39 weeks gestation of : Attestations 2 Medical Necessity Statement*: Routine care Coding Level of Care Code Acute Code for Chg Fwd Diagnoses Spontaneous vaginal delivery O80 39 weeks gestation of Z3A.39
[2023-10-23 04:15] VITALS: BP 120/79; PULSE 90; RESP 16; TEMP 36.8; O2SAT 97
[2023-10-23 09:00] VITALS: BP 117/70; PULSE 74; RESP 16; TEMP 36.7
[2023-10-23] MEDS: docusate sodium 100 mg Capsule PO (09:39)
[2023-10-23] MEDS: PRENATAL VIT NO.130/IRON/FOLIC 1 EACH TABLET PO (09:39)
[2023-10-23] MEDS: ibuprofen 800 mg tablet PO (09:39)
--- NOTE | 2023-10-23 10:30 | PM.OBGYDC ---
Discharge Providers TITLE CURATIVE SPECIALIST Date of Admission: 10/21/23 19:10 Date of Discharge: 10/23/23 Attending Provider at Admission: Corby Quintanilla MD Attending Provider at Discharge: Corby Quintanilla MD Primary Care Provider: Sherlyn Mera Diagnoses at Discharge Discharge Diagnosis (1) Spontaneous vaginal delivery: Status: Acute (2) 39 weeks gestation of : Status: Acute Reason for Visit Reason for Visit: IOL Hospital Course Hospital Course The patient presented to the hospital for induction. She was placed on Pitocin. An amniotomy was performed. She progressed to complete shortly thereafter and had an unremarkable delivery of a healthy LGA male. She had a first-degree posterior midline tear. Her course was unremarkable. Her bleeding was within normal limits. She breast-fed well. Her pain was well-controlled. There were no concerns. Information Peripartum Data: Infant Delivery Method: Vaginal Physical Exam Narrative: The patient is alert. She appears comfortable. Her heart has a regular rate and rhythm with no murmurs appreciated. Lungs are clear to auscultation bilaterally. Her fundus is firm and below the umbilicus. History History History 3 Term 2 0 Miscarriages/Ectopic 0 Living Children 2 Discharge Data Studies Completed and Pending Laboratory Results WBC 9.89 10^3/uL (3.29-11.43) 10/22/23 11:15 RBC 3.43 10^6/uL (3.85-5.65) L 10/22/23 11:15 Hgb 9.00 g/dL (11.27-16.99) L 10/22/23 11:15 Hct 28.0 % (36-47) L 10/22/23 11:15 MCV 81.6 fl (85-98) L 10/22/23 11:15 MCH 26.2 pg (27-33) L 10/22/23 11:15 MCHC 32.1 g/dL (30-55) 10/22/23 11:15 RDW 14.3 % (12.1-15.1) 10/22/23 11:15 Plt Count 246 10^3/cmm (157-399) 10/22/23 11:15 MPV 11.9 fL (7.4-10.4) H 10/22/23 11:15 Neut % (Auto) 66.4 % 10/21/23 19:50 Lymph % (Auto) 28.1 % 10/21/23 19:50 [place] % (Auto) 5.0 % 10/21/23 19:50 Eos % (Auto) 0.2 % 10/21/23 19:50 Baso % (Auto) 0.1 % 10/21/23 19:50 Neut # (Auto) 5.84 10^3/uL (1.8-7.7) 10/21/23 19:50 Lymph # (Auto) 2.5 10^3/uL (0.8-4.8) 10/21/23 19:50 [place] # (Auto) 0.4 10^3/uL (0.2-0.9) 10/21/23 19:50 Eos # (Auto) 0.0 10^3/uL (0.0-0.8) 10/21/23 19:50 Baso # (Auto) 0.0 10^3/uL (0.0-0.1) 10/21/23 19:50 Nucleated RBC % (auto) 0 % 10/21/23 19:50 Nucleated RBCs # 0.0 /100WBC 10/21/23 19:50 Blood Type O Positive 10/21/23 19:50 Rho(D) Type Rh positive 10/21/23 19:50 Antibody Screen Negative 10/21/23 19:50 Vitals Last Vital Signs Temp 98.0 F 10/23/23 09:00 Pulse 74 10/23/23 09:00 Resp 16 10/23/23 09:00 BP 117/70 10/23/23 09:00 Pulse Ox 97 10/23/23 04:15 O2 Del Method Room Air 10/23/23 04:15 Results Labs OB ([facility]): Obstetrics US 07/21/23 Obstetrics US/Biophysical Profile 02/27/21 Blood Type O Positive 10/21/23 Antibody Screen Negative 10/21/23 Hct 28.0 % (36-47) L 10/22/23 Hgb 9.00 g/dL (11.27-16.99) L 10/22/23 Rho(D) Type Rh positive 10/21/23 Plt Count 246 10^3/cmm (157-399) 10/22/23 Hep Bs Antigen Non-reactive (Nonreactive) 09/12/20 Hepatitis C Antibody Non-reactive (Nonreactive) 09/12/20 Rubella IgG Antibody 55.4 IU/mL (0.0-10.0) H 09/12/20 RPR Nonreactive (Nonreactive) 09/12/20 HIV 1&2 Ab & HIV 1 Ag Non-reactive (Non-Reactiv) 09/12/20 TSH 1.14 uIU/mL (0.27-4.20) 08/21/21 Cystic Fibrosis Screen Negative 09/12/20 Gest Glucose Tolerance 120 mg/dL 12/24/20 Ser , Semi-Qnt 96257.00 mIU/mL 05/26/23 HCG, Qual Positive (Negative) H 05/26/23 Urine Opiates Screen Negative ng/mL (Negative) 09/12/20 Ur Barbiturates Screen Negative ng/mL (Negative) 09/12/20 Ur Phencyclidine Scrn Negative ng/mL (Negative) 09/12/20 Ur Amphetamines Screen Negative ng/mL (Negative) 09/12/20 U Benzodiazepines Scrn Negative ng/mL (Negative) 09/12/20 Urine Cocaine Screen Negative ng/mL (Negative) 09/12/20 U Marijuana (THC) Screen Negative ng/mL (Negative) 09/12/20 Micro Urine Specimen 12/13/20 Pap Smear Interpret See note 08/27/22 Discharge Plan Discharge Patient Disposition: Home Condition: Stable Prescriptions: New ibuprofen 800 mg Tablet 800 mg PO TID Qty: 45 0RF Continued tablet 1 tab PO DAILY Tylenol 8 Hour 650 mg Tablet Extended Release 650 mg PO Q8H PRN (Reason: Pain) Discharge Orders: Discharge Order (Routine); Ordered 10/23/23 Ordered By: Corby Quintanilla Referrals: Corby Quintanilla MD [Physician] - 6 Weeks Discharge Diet: Usual diet Discharge Activity: Limit activity as instructed Patient Instructions: Depression (DC), Bleeding (DC), Preeclampsia and Eclampsia After Delivery (GEN), OB Discharge Report, OB Food/Drug Interaction Guide, OB Care at Home, Opioid Safety, OB Vaginal Deliveries, Abnormal Bleeding Discharge Attestations TITLE CURATIVE SPECIALIST Time Spent in Discharge Care*: less than 30 min Coding Level of Care Code Acute Code for Chg Fwd Diagnoses Spontaneous vaginal delivery O80 39 weeks gestation of Z3A.39
[2023-10-23 11:00] VITALS: BP 117/70; PULSE 74; RESP 16; TEMP 36.7
== END 2023-10-23 11:45 | disposition home or self-care (01) | DRG 807 ==
LOC: OPOB 19:10 → OBGYN 19:10
PROVIDERS: Admitting Provider Family Medicine; PCP Nurse Practitioner Family; Visit Provider Family Medicine
DX: O70.0 First degree perineal laceration during delivery (principal); Z37.0 Single live birth; O36.60X0 Maternal care for excessive fetal growth, unspecified trimester, not applicable or unspecified; Z3A.39 39 weeks gestation of pregnancy
CPT/HCPCS: 36415; 59409; 85025; 85027; 86850; 86900; 99211; J2590; J7121

== ENCOUNTER 2025-02-01 09:07 | Outpatient (CLI) | payer OTHER, SELFPAY ==
--- NOTE | 2025-02-01 09:14 | MM_ITS ---
WS: [id number] BILATERAL 3D TOMOSYNTHESIS DIGITAL DIAGNOSTIC MAMMOGRAPHY WITH CAD CLINICAL INFORMATION: LUMP HISTORY: Palpable lump upper outer RIGHT breast COMPARISON: Baseline TECHNIQUE: Bilateral CC, MLO, and ML views. FINDINGS: The breasts are composed of heterogeneous fibroglandular density, which can limit the detection of small underlying mass lesions. Dense parenchymal tissue deep to the palpable marker upper outer RIGHT breast. Suggestion of underlying ovoid nodule. Ultrasound described below. Unremarkable LEFT breast ULTRASOUND BREAST RIGHT TECHNIQUE: Ultrasound right breast focused area of concern. CLINICAL INFORMATION: LUMP FINDINGS: Ultrasound RIGHT breast area of concern. Deep to the palpable marker is an ovoid hypoechoic cystic and solid lesion which is indeterminate. Some associated vascularity. Recommend further evaluation with ultrasound-guided biopsy. This measures approximately 3.1 x 2.7 x 1.1 cm at the 9 o'clock position 6 cm from the nipple MM/MM diag BI tomosynthesis [id number] IMPRESSION: DENSITY: The breasts are heterogeneously dense, which may obscure small masses. BI-RADS: 4 - Suspicious Finding - Biopsy Should Be Considered FOLLOW UP: US Guided Biopsy Recommended Recommend ultrasound-guided biopsy of the RIGHT breast nodule
== END 2025-02-01 09:08 | disposition home or self-care (01) ==
PROVIDERS: PCP Nurse Practitioner Family; Visit Provider Family Medicine
DX: N63.15 Unspecified lump in the right breast, overlapping quadrants (principal); R92.323 Mammographic fibroglandular density, bilateral breasts; R92.333 Mammographic heterogeneous density, bilateral breasts
CPT/HCPCS: 76642; 77062; G0279

== ENCOUNTER 2025-02-28 10:34 | Outpatient (CLI) | payer OTHER, SELFPAY ==
--- NOTE | 2025-02-28 10:40 | US_ITS ---
WS: [id number] ULTRASOUND-GUIDED RIGHT BREAST BIOPSY HISTORY: MASS OF LOWER OUTER QUAD OF R BREAST COMPARISON: 02/01/2025 Procedure, risks and complications are explained to the patient. Medications are reviewed. Consent is obtained. The mass in the RIGHT breast is localized with ultrasound. Mass localizes to 9:00, 6 cm from the nipple. Skin is cleansed with ChloraPrep and anesthetized with 1% buffered lidocaine. Small dermatome is made. Under sterile conditions mass is biopsied with a 14-gauge Achieve needle. Multiple core biopsies are performed. Material placed in formalin and sent to pathology for review. No complications encountered. Breast tissue marker ([employer] ultrasound enhanced ribbon): Single. Patient left the radiology suite with no complications. [place] [facility] [place] [facility] any concerns. US/[place] [id number] IMPRESSION: 1. Uncomplicated core needle biopsy RIGHT breast mass at 9:00. PATHOLOGY: Changes consistent with fibroadenoma. Negative for malignancy. RECOMMENDATION: RIGHT breast ultrasound follow-up 6 months.
== END 2025-02-28 10:35 | disposition home or self-care (01) ==
PROVIDERS: PCP Nurse Practitioner Family; Visit Provider Family Medicine
DX: N63.15 Unspecified lump in the right breast, overlapping quadrants (principal)
CPT/HCPCS: 19083; 88305